=== PATIENT | female | born 1995 | race Two or more races ===

== ENCOUNTER → 2021-05-03 | Emergency (ER) | payer BC ==
[~2021-05-03] VITALS: Ht 149.9 cm; Wt 55.8 kg
[~2021-05-03] MED LIST: GEODON20 MG PO; LAMOTRIGINE200 MG PO; QUETIAPINE FUM400 M1
== END | disposition home or self-care (01) ==
LOC: ER 22:03
DX: Z53.21 Procedure and treatment not carried out due to patient leaving prior to being seen by health care provider (principal)